=== PATIENT | female | born 1970 | race Native Hawaiian/Other Pacific Islander ===

== ENCOUNTER 2017-01-18 17:45 | Observation (INO) | payer OTHER ==
[~2017-01-18] VITALS: Ht 162.6 cm; Wt 52.6 kg
[2017-01-18 18:46] VITALS: BP 115/76; TEMP 98.2; Ht 162.6 cm; Wt 52.6 kg
[2017-01-18] MEDS ORDERED: JUNEL F1 PO (18:52)
[2017-01-18 19:00] LABS: PLATELET COUNT 330 K/uL (152-353)
[2017-01-18 19:09] LABS: POTASSIUM 3.7 mmol/L (3.6-5.2); SODIUM 137 mmol/L (136-145)
[2017-01-18 20:00] VITALS: BP 96/61; TEMP 98.4
[2017-01-19] VITALS: BP 95/54; TEMP 98
[2017-01-19 04:00] VITALS: BP 91/54; TEMP 98.4
[2017-01-19 06:16] LABS: PLATELET COUNT 261 K/uL (152-353)
[2017-01-19 06:19] LABS: POTASSIUM 3.9 mmol/L (3.6-5.2); SODIUM 140 mmol/L (136-145)
[2017-01-19 08:00] VITALS: BP 108/65; TEMP 97.5
[2017-01-19 12:00] VITALS: BP 93/60; TEMP 98.9
== END 2017-01-19 15:45 | disposition home or self-care (01) ==
LOC: MED/SURG 17:45
PROVIDERS: ADMIT Family Medicine
DX: N30.01 Acute cystitis with hematuria (principal); N20.0 Calculus of kidney
CPT/HCPCS: 36415; 36591; 80053; 81000; 83735; 85027; 87040; 96365; 96366; 96367; 96375; 99220; G0378; G0379; J1885; J2543

== ENCOUNTER 2023-02-15 15:10 | Outpatient (CLI) | payer BC ==
[~2023-02-15 15:10] MED LIST: JUNEL F1 PO
[2023-02-15 15:49] LABS: POTASSIUM 3.8 mmol/L (3.6-5.2)
[2023-02-15 16:03] LABS: PLATELET COUNT 451 K/uL (152-353)
== END 2023-02-15 19:31 | disposition home or self-care (01) ==
LOC: LABW 15:10
PROVIDERS: ATTEND Nurse Practitioner Family
DX: M94.0 Chondrocostal junction syndrome [Tietze] (principal)
CPT/HCPCS: 36415; 80048; 85027; 85379